=== PATIENT | female | born 1955 ===

== ENCOUNTER → 2018-02-08 | Outpatient (CLI) | payer OTHER | END | disposition home or self-care (01) | LOC: NUCLEAR 13:30 | DX: C73 Malignant neoplasm of thyroid gland (principal) | CPT/HCPCS: 78018; 78020; A9528 ==

== ENCOUNTER 2020-07-29 10:35 | Outpatient (CLI) | payer OTHER | END 2020-07-29 10:40 | disposition home or self-care (01) | LOC: SONOGRAMA 10:35 | PROVIDERS: ATTEND Pathology Anatomic Pathology & Clinical Pathology | DX: C73 Malignant neoplasm of thyroid gland (principal) ==

== ENCOUNTER 2024-10-13 08:36 | Outpatient (CLI) | payer OTHER | END 2024-10-13 08:40 | disposition home or self-care (01) | LOC: SONOGRAMA 08:36 | PROVIDERS: ATTEND Pathology Anatomic Pathology | DX: R59.0 Localized enlarged lymph nodes (principal); C73 Malignant neoplasm of thyroid gland ==